=== PATIENT | male | born 1935 | race Caucasian/White ===

== ENCOUNTER 2021-02-26 22:21 | Emergency (ER) | payer OTHER ==
[2021-02-26 22:32] VITALS: TEMP 97.9
[2021-02-26] MEDS: ASPIRIN 81 MG PO STA ×2 (23:42→23:51)
--- NOTE | 2021-02-26 23:44 | XR ---
EXAMINATION TYPE: XR chest 2V DATE OF EXAM: 02/26/2021 COMPARISON: NONE HISTORY: Chest pain TECHNIQUE: 2 views FINDINGS: There is no heart failure nor confluent pneumonic infiltrate. Costophrenic angles are clear . There are sternal wires. There is right central venous catheter with tip in the superior vena cava. IMPRESSION: No active cardiopulmonary disease.
[2021-02-26] MEDS ORDERED: ASPIRIN 81 MG PO STA (23:50)
[2021-02-26 23:57] LABS: Basophils % (A) 0 %; Eosinophils % (A) 0 %; HGB 12.1 gm/dL (13.0-17.5); Lymphocytes # (A) 0.5 k/uL (1.0-4.8); Lymphocytes % (A) 5 %; MCH 27.8 pg (25.0-35.0); MCHC 32.6 g/dL (31.0-37.0); MCV 85.3 fL (80.0-100.0); Mean Platelet Volume 7.8; Monocytes # (A) 0.5 k/uL (0-1.0); Monocytes % (A) 6 %; Neutrophils # (A) 7.6 k/uL (1.3-7.7); Neutrophils % (A) 88 %; Platelet Count 259 k/uL (150-450); RBC 4.33 m/uL (4.30-5.90); WBC 8.6 k/uL (3.8-10.6)
[2021-02-27 00:08] LABS: Partial Thromboplastin Time 24.8 sec (22.0-30.0); Prothrombin Time 10.3 sec (9.0-12.0)
[2021-02-27 00:14] LABS: ALT 18 U/L (4-49); AST 30 U/L (17-59); African American GFR (CKD) >90 (>60 ml/min/1.73 sqM); Albumin 3.6 g/dL (3.5-5.0); Alkaline Phosphatase 78 U/L (38-126); Anion Gap 8 mmol/L; Blood Urea Nitrogen 31 mg/dL (9-20); Carbon Dioxide 25 mmol/L (22-30); Chloride 100 mmol/L (98-107); Glucose 454 mg/dL (74-99); Magnesium 2.1 mg/dL (1.6-2.3); Non-African American GFR(CKD) 81 (>60 ml/min/1.73 sqM); Potassium 4.1 mmol/L (3.5-5.1); Sodium 133 mmol/L (137-145); Total Bilirubin 0.3 mg/dL (0.2-1.3); Total Protein 5.8 g/dL (6.3-8.2)
[2021-02-27] MEDS ORDERED: INSULIN ASPART (NovoLOG) 100 UNIT/ML VIAL SQ STA (00:35)
--- NOTE | 2021-02-27 00:47 | ED ---
General Adult HPI - General Chief complaint: Chest Pain Stated complaint: Chest pain Time Seen by Provider: 02/26/21 22:54 Source: patient, family Mode of arrival: wheelchair Limitations: no limitations - History of Present Illness Initial comments: 85 year-old male patient presents to the emergency department for evaluation of chest pain. Patient states pain started about an hour ago. Did take a nitro it did resolve his chest pain so they presented here for further evaluation. Patient states his cheeks became flushed when the pain started. Denies any shortness of breath, nausea, or sweats. 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 Is currently receiving chemotherapy for prostate cancer. He did start a new chemo recently. States his symptoms have currently resolved. Patient denies any recent rash, fever, chills, cough, abdominal pain, diarrhea, constipation, back pain, numbness, tingling, dizziness, weakness, hematuria, dysuria, urinary urgency, urinary frequency, headache, visual changes, or any other complaints. - Related Data Allergies Allergy/AdvReac Type Severity Reaction Status Date / Time No Known Allergies Allergy Verified 02/26/21 22:27 Review of Systems ROS Statement: Those systems with pertinent positive or pertinent negative responses have been documented in the HPI. ROS Other: All systems not noted in ROS Statement are negative. Past Medical History Past Medical History: Diabetes Mellitus, Hyperlipidemia, Hypertension, Prostate Disorder Additional Past Medical History / Comment(s): prostate CA History of Any Multi-Drug Resistant Organisms: None Reported Past Surgical History: Appendectomy, Coronary Bypass/CABG, Hernia Repair Past Psychological History: No Psychological Hx Reported Smoking Status: Never smoker Past Alcohol Use History: None Reported Past Drug Use History: None Reported General Exam Limitations: no limitations General appearance: alert, in no apparent distress, other (Physical well- developed, well-nourished elderly male patient in no acute distress. Vital signs upon presentation are temperature 97.9F, pulse 104, respirations 18, blood pressure 130/62, pulse ox 98% on room air per) ENT exam: Present: normal exam, normal oropharynx, mucous membranes moist Respiratory exam: Present: normal lung sounds bilaterally. Absent: respiratory distress, wheezes, rales, rhonchi, stridor Cardiovascular Exam: Present: regular rate, normal rhythm, normal heart sounds. Absent: systolic murmur, diastolic murmur, rubs, gallop, clicks GI/Abdominal exam: Present: soft, normal bowel sounds. Absent: distended, tenderness, guarding, rebound, rigid Neurological exam: Present: alert, oriented X3, CN II-XII intact Psychiatric exam: Present: normal affect, normal mood Skin exam: Present: warm, dry, intact, normal color. Absent: rash Course Vital Signs 02/26/21 02/27/21 22:27 00:00 Temperature 97.9 F Pulse Rate 104 H 84 Respiratory 18 16 Rate Blood Pressure 130/62 O2 Sat by Pulse 98 Oximetry EKG Findings - EKG Comments: EKG Findings:: EKG obtained at 00 31 shows sinus tachycardia with a first-degree AV block with some PACs. Ventricular is 101, PA interval 226, QRS duration 90, QT 354, QTC 459. No evidence of ST elevation or depression. Medical Decision Making - Medical Decision Making 85-year-old male patient presents for evaluation of chest pain that resolved quickly after taking nitro. Physical examination is unremarkable. He did have all symptoms resolved upon arrival. Labs reviewed and did reveal troponin 0.015. Sugar was elevated 454. Other labs are unremarkable. I did discuss findings and results with the patient. Given cardiac history and risk factors I did recommend admission to the hospital for serial troponins and further evaluation by cardiology. Patient refused. I did discuss risks of leaving including , heart attack, permanent disability, he verbalizes understanding of these risks and wanted to leave anyway. His daughter is present she witnessed the conversation she is agreeable to taking him home. Return parameters were discussed in detail. He is instructed to follow-up with his primary care physician for recheck as soon as possible. Case discussed with my attending Dr. Vargas. - Lab Data Result diagrams: 02/26/21 23:49 02/26/21 23:49 Lab Results 02/26/21 02/26/21 02/26/21 Range/Units 23:49 23:49 23:49 WBC 8.6 (3.8-10.6) k/uL RBC 4.33 (4.30-5.90) m/uL Hgb 12.1 L (13.0-17.5) gm/dL Hct 37.0 L (39.0-53.0) % MCV 85.3 (80.0-100.0) fL MCH 27.8 (25.0-35.0) pg MCHC 32.6 (31.0-37.0) g/dL RDW 15.0 (11.5-15.5) % Plt Count 259 (150-450) k/uL MPV 7.8 Neutrophils % 88 % Lymphocytes % 5 % Monocytes % 6 % Eosinophils % 0 % Basophils % 0 % Neutrophils # 7.6 (1.3-7.7) k/uL Lymphocytes # 0.5 L (1.0-4.8) k/uL Monocytes # 0.5 (0-1.0) k/uL Eosinophils # 0.0 (0-0.7) k/uL Basophils # 0.0 (0-0.2) k/uL PT 10.3 (9.0-12.0) sec INR 1.0 (<1.2) APTT 24.8 (22.0-30.0) sec Sodium 133 L (137-145) mmol/L Potassium 4.1 (3.5-5.1) mmol/L Chloride 100 (98-107) mmol/L Carbon Dioxide 25 (22-30) mmol/L Anion Gap 8 mmol/L BUN 31 H (9-20) mg/dL Creatinine 0.83 (0.66-1.25) mg/dL Est GFR (CKD-EPI)AfAm >90 (>60 ml/min/1.73 sqM) Est GFR (CKD-EPI)NonAf 81 (>60 ml/min/1.73 sqM) Glucose 454 H (74-99) mg/dL Calcium 9.0 (8.4-10.2) mg/dL Magnesium 2.1 (1.6-2.3) mg/dL Total Bilirubin 0.3 (0.2-1.3) mg/dL AST 30 (17-59) U/L ALT 18 (4-49) U/L Alkaline Phosphatase 78 (38-126) U/L Troponin I (0.000-0.034) ng/mL Total Protein 5.8 L (6.3-8.2) g/dL Albumin 3.6 (3.5-5.0) g/dL 02/26/21 Range/Units 23:49 WBC (3.8-10.6) k/uL RBC (4.30-5.90) m/uL Hgb (13.0-17.5) gm/dL Hct (39.0-53.0) % MCV (80.0-100.0) fL MCH (25.0-35.0) pg MCHC (31.0-37.0) g/dL RDW (11.5-15.5) % Plt Count (150-450) k/uL MPV Neutrophils % % Lymphocytes % % Monocytes % % Eosinophils % % Basophils % % Neutrophils # (1.3-7.7) k/uL Lymphocytes # (1.0-4.8) k/uL Monocytes # (0-1.0) k/uL Eosinophils # (0-0.7) k/uL Basophils # (0-0.2) k/uL PT (9.0-12.0) sec INR (<1.2) APTT (22.0-30.0) sec Sodium (137-145) mmol/L Potassium (3.5-5.1) mmol/L Chloride (98-107) mmol/L Carbon Dioxide (22-30) mmol/L Anion Gap mmol/L BUN (9-20) mg/dL Creatinine (0.66-1.25) mg/dL Est GFR (CKD-EPI)AfAm (>60 ml/min/1.73 sqM) Est GFR (CKD-EPI)NonAf (>60 ml/min/1.73 sqM) Glucose (74-99) mg/dL Calcium (8.4-10.2) mg/dL Magnesium (1.6-2.3) mg/dL Total Bilirubin (0.2-1.3) mg/dL AST (17-59) U/L ALT (4-49) U/L Alkaline Phosphatase (38-126) U/L Troponin I 0.015 (0.000-0.034) ng/mL Total Protein (6.3-8.2) g/dL Albumin (3.5-5.0) g/dL - Radiology Data Radiology results: report reviewed, image reviewed Two-view x-ray of the chest is obtained. Report was reviewed in its entirety. Impression by Dr. Medina shows no active cardiopulmonary disease. Disposition Clinical Impression: Chest pain Disposition: Left Against Medical Advice Condition: Fair Instructions (If sedation given, give patient instructions): Chest Pain (ED) Additional Instructions: Follow up with your primary care physician for recheck in 1-2 days. Return for any new, worsening, or concerning symptoms. Is patient prescribed a controlled substance at d/c from ED?: No Referrals: None,Stated [Primary Care Provider] - 1-2 days Time of Disposition: 00:57
[2021-02-27 01:04] VITALS: PULSE 84; RESP 16
[2021-02-27 01:07] LABS: Glucose,Whole Blood 393 mg/dL (75-99)
[2021-02-27 01:22] VITALS: BP 158/89
== END 2021-02-27 01:24 | disposition left against medical advice (07) ==
LOC: EDBD → MERGE 22:21 → EC 22:21
DX: R07.9 Chest pain, unspecified (principal); I10 Essential (primary) hypertension; E78.5 Hyperlipidemia, unspecified; E11.9 Type 2 diabetes mellitus without complications
CPT/HCPCS: 36415; 71046; 80053; 83735; 84484; 85025; 85610; 85730; 93005; 99285

== ENCOUNTER 2021-03-01 09:34 | Emergency (ER) | payer OTHER ==
[2021-03-01 09:41] VITALS: TEMP 97.4
[2021-03-01] MEDS ORDERED: MORPHINE SULFATE 4 MG/ML SYRINGE IM STA ×2 (10:02→10:36)
--- NOTE | 2021-03-01 10:20 | ED ---
General Adult HPI - General Chief complaint: Abdominal Pain Stated complaint: Constipation/Abd Pain Time Seen by Provider: 03/01/21 09:52 Source: patient, family, RN notes reviewed, old records reviewed Mode of arrival: wheelchair Limitations: no limitations - History of Present Illness Initial comments: 89-year-old male history of prostate cancer status post resection, and chemotherapy presenting with what he believes his constipation. He states he's only had very minimal stool output, one small hard bowel movement at a time. He's had to strain. He has been taking a laxative tea which has increased his abdominal cramping but has not resulted in a bowel movement. He states he's had this for some time and he is 100% certain this is constipation pain. Patient is requesting an enema. - Related Data Home Medications Medication Instructions Recorded Confirmed A & D Ointment 1 applic TOPICAL DAILY PRN 03/01/21 03/01/21 Apixaban [Eliquis] 5 mg PO BID 03/01/21 03/01/21 Atorvastatin [Lipitor] 40 mg PO HS 03/01/21 03/01/21 Pantoprazole Sodium [Protonix] 40 mg PO DAILY 03/01/21 03/01/21 Pegfilgrastim-Bmez [Ziextenzo] 6 mg SQ DIRECTED 03/01/21 03/01/21 amLODIPine [Norvasc] 10 mg PO DAILY 03/01/21 03/01/21 glipiZIDE [Glucotrol] 10 mg PO AC-BID 03/01/21 03/01/21 ondansetron HCL [Zofran] 8 mg PO BID PRN 03/01/21 03/01/21 oxyCODONE HCL [OxyIR] 10 mg PO Q6H 03/01/21 03/01/21 predniSONE 5 mg PO BID 03/01/21 03/01/21 Allergies Allergy/AdvReac Type Severity Reaction Status Date / Time bicalutamide Allergy Per [facility] Verified 03/01/21 11:55 Records hydrocodone Allergy Per [facility] Verified 03/01/21 11:55 Records metformin Allergy Per [facility] Verified 03/01/21 11:55 Records morphine Allergy Per [facility] Verified 03/01/21 11:55 Records nitroglycerin Allergy Per [facility] Verified 03/01/21 11:55 [From Nitrostat] Records oxybutynin Allergy Per [facility] Verified 03/01/21 11:55 Records Review of Systems ROS Statement: Those systems with pertinent positive or pertinent negative responses have been documented in the HPI. ROS Other: All systems not noted in ROS Statement are negative. Past Medical History Past Medical History: Diabetes Mellitus, Hypertension, Prostate Disorder Additional Past Medical History / Comment(s): prostate cancer History of Any Multi-Drug Resistant Organisms: None Reported Past Surgical History: Prostate Surgery Past Psychological History: No Psychological Hx Reported Smoking Status: Never smoker Past Alcohol Use History: None Reported Past Drug Use History: None Reported General Exam Limitations: no limitations General appearance: alert, in no apparent distress Head exam: Present: atraumatic, normocephalic Eye exam: Present: normal appearance, PERRL ENT exam: Present: normal exam Neck exam: Present: normal inspection. Absent: tenderness, meningismus Respiratory exam: Present: normal lung sounds bilaterally. Absent: respiratory distress Cardiovascular Exam: Present: regular rate, normal rhythm GI/Abdominal exam: Present: soft, distended. Absent: tenderness, guarding, rebound Rectal exam: Present: fecal impaction. Absent: normal rectal tone, hemorrhoids Extremities exam: Present: normal inspection, normal capillary refill Neurological exam: Present: alert, oriented X3, CN II-XII intact. Absent: motor sensory deficit Psychiatric exam: Present: normal affect, normal mood Skin exam: Present: warm, dry, intact. Absent: cyanosis, diaphoretic Course Vital Signs 03/01/21 03/01/21 09:35 10:42 Temperature 97.4 F L Pulse Rate 110 H 107 H Respiratory 20 22 Rate Blood Pressure 134/71 163/95 O2 Sat by Pulse 97 99 Oximetry Medical Decision Making - Medical Decision Making 89-year-old male with constipation, initial x-ray did have some concern for intraperitoneal free air however CT was performed and this was negative for free air. Showed significant constipation. The patient had initially received an enema along with fecal disimpaction by myself. Second enema was administered without success. A second attempt to disimpact was initially unsuccessful however the patient subsequently had a very large bowel movement and is feeling 100% better. In the interim I had discussed case with Dr. Liasha meza for general surgery with plans to admit this patient for pain control and possible disimpaction. He recommended magnesium citrate. However the patient had a bowel movement prior to this and again is feeling better. Patient can be discharged at this time. Disposition Clinical Impression: Abdominal pain, Constipation Disposition: HOME SELF-CARE Condition: Fair Instructions (If sedation given, give patient instructions): Abdominal Pain (ED), Constipation (DC) Additional Instructions: Please take MiraLAX daily. Increase fluids. Return as needed to the emergency department. Is patient prescribed a controlled substance at d/c from ED?: No Referrals: None,Stated [Primary Care Provider] - 1-2 days Time of Disposition: 12:21
--- NOTE | 2021-03-01 10:23 | XR ---
EXAMINATION TYPE: XR KUB DATE OF EXAM: 03/01/2021 10:14 AM CLINICAL HISTORY: Pain TECHNIQUE: Upright images of the abdomen and pelvis were obtained COMPARISON: None. FINDINGS: Nonspecific bowel gas pattern. There is a paucity of small bowel gas. No visualized viscero megaly. There is curvilinear air under the left hemidiaphragm which seems to follow course of the spl enic flexure of the colon. Left upper quadrant surgical clips. Pelvic surgical clips. Degenerative ch anges of the visualized spine. Degenerative change of the left hip. IMPRESSION: 1. Nonspecific bowel gas pattern. 2. Curvilinear air under the left hemidiaphragm seems to follow the course of the splenic flexure col on. Free air felt to be unlikely, although not excluded. If there is clinical concern for pneumoperit oneum recommend CT abdomen pelvis.
--- NOTE | 2021-03-01 11:19 | CT ---
EXAMINATION TYPE: CT abdomen pelvis wo con DATE OF EXAM: 03/01/2021 COMPARISON: None HISTORY: Constipation/ abdominal pain CT DLP: 594.1 mGycm Automated exposure control for dose reduction was used. TECHNIQUE: Helical acquisition of images was performed from the lung bases through the pelvis. FINDINGS: LUNG BASES: Subsegmental consolidation involving both lung bases. LIVER/GB: Multiple hypodensities within the liver are nonspecific by noncontrast technique. Septation within the largest one in the dome measuring 3.6 cm. Measures approximately 2 Hounsfield units likel y related to a cyst. Gallstones are incidentally noted. PANCREAS: No significant abnormality is seen. SPLEEN: No significant abnormality is seen. ADRENALS: No significant abnormality is seen. KIDNEYS: No significant abnormality is seen. ADENOPATHY: None visualized. OSSEOUS STRUCTURES: Hypertrophic and degenerative changes spine with multilevel facet arthropathy. BOWEL: Nonspecific bowel gas pattern with extensive retained fecal debris correlate for constipation . No evidence of obstruction. OTHER: There is a soft tissue prominence in the right hemipelvis measuring 5.4 cm with evidence of pr evious surgery in the region may represent prostate history of carcinoma. IMPRESSION: 1. Extensive retained fecal debris throughout the colon correlate for constipation. 2. Cholelithiasis. 3. Large area of abnormal soft tissue attenuation the pelvis likely related the patient's history of prostate carcinoma. 4. Probable hepatic cysts.
[2021-03-01] MEDS ORDERED: DOCUSATE 100 MG CAP PO STA (11:40)
[2021-03-01] MEDS ORDERED: HYDROmorphone 0.5 MG/0.5 ML SYRINGE IVP STA (12:13)
[2021-03-01] MEDS ORDERED: MAGNESIUM CITRATE 296 ML BOTTLE PO ONE (12:14)
[2021-03-01 13:22] VITALS: BP 164/89; PULSE 95; RESP 18
== END 2021-03-01 13:21 | disposition home or self-care (01) ==
LOC: EC 09:34
DX: K59.00 Constipation, unspecified (principal); R10.9 Unspecified abdominal pain; I10 Essential (primary) hypertension; E11.9 Type 2 diabetes mellitus without complications; Z85.46 Personal history of malignant neoplasm of prostate; Z79.01 Long term (current) use of anticoagulants; Z79.52 Long term (current) use of systemic steroids; Z79.84 Long term (current) use of oral hypoglycemic drugs; Z79.899 Other long term (current) drug therapy; Z88.5 Allergy status to narcotic agent
CPT/HCPCS: 74018; 74176; 99284; 96372 ×2; J2270